=== PATIENT | female | born 1945 | race Caucasian/White ===

== ENCOUNTER 2018-07-12 23:43 | Emergency (ER) | payer MEDICARE ==
[~2018-07-12 23:43] MED LIST: Iopamidol 370 76% 100 ML VIAL ONE
[2018-07-13] MEDS ORDERED: Morphine 4 MG/ML VIAL ONE (00:06)
[2018-07-13] MEDS ORDERED: Ondansetron PF 4 MG/2 ML Vial ONE (00:06)
[2018-07-13 00:38] LABS: Band 1 % (5-11); Eosinophils 5 % (0-10); Hemoglobin 14.2 g/dL (12.0-16.0); Lymphocytes 24 % (21-51); MDiff Complete? YES; Mean Corpuscular HGB CONC 34.5 g/dL (32.0-36.0); Mean Corpuscular Hemoglobin 29.7 pg (27.0-31.0); Mean Corpuscular Volume 86.1 fL (78.0-98.0); Monocytes 11 % (0-10); Neutrophil 55 % (42-75); Platelet Count 206 thou/uL (130-400); RBC Distribution Width 11.6 % (11.5-14.5); Reactive Lymphocytes 4 % (0-10); White Blood Cell (WBC) Count 4.1 thou/uL (4.8-10.8)
[2018-07-13] MEDS ORDERED: Aspirin Chewable 81 MG TAB ONE (00:41)
[2018-07-13 00:42] LABS: ALT (SGPT) 19 U/L (8-55); AST (SGOT) 14 U/L (5-34); Albumin 4.2 g/dL (3.4-4.8); Alkaline Phosphatase 57 U/L (40-150); Anion Gap 13 mmol/L (10-20); BUN (Urea Nitrogen) 13 mg/dL (9.8-20.1); Bilirubin, Total 0.4 mg/dL (0.2-1.2); Calc. Creatinine Clearance 0 mL/min (70-130); Calcium 9.3 mg/dL (7.8-10.44); Carbon Dioxide 25 mmol/L (23-31); Chloride 104 mmol/L (98-107); Estimated GFR-MDRD 74; Globulin 2.5 g/dL (2.4-3.5); Glucose 135 mg/dL (83-110); Potassium 3.6 mmol/L (3.5-5.1); Protein, Total 6.7 g/dL (6.0-8.3); Sodium 138 mmol/L (136-145)
[2018-07-13] MEDS ORDERED: Ketorolac Tromethamine 30 MG/ML VIAL ONE (00:56)
[2018-07-13] MEDS ORDERED: HYDROcodone/Acetaminophen 5/325 mg Tablet ONE (02:12)
--- NOTE | 2018-07-13 07:35 | RAD ---
CHEST 1 VIEW: Date: 07/13/18 HISTORY: Chest pain. COMPARISON: None. FINDINGS: Lungs are clear. No pneumothorax or effusion. Cardiac silhouette and mediastinal contours within norm al limits. No acute osseous abnormality. IMPRESSION: No acute intrathoracic abnormality. POS: CELIAH
--- NOTE | 2018-07-13 08:08 | CT ---
PRELIMINARY REPORT/[facility]/EMERGENTY AFTER-HOURS PROCEDURE CT Angiography Chest With Contrast EXAM DATE/TIME: 07/13/2018 1:08 AM CLINICAL HISTORY: 73 years old, female; Pain and abnormal findings; Abnormal diagnostic tests; Elevated d-dimer; Chest wall pain and pleuordynia; Patient HX: Left lower chest pain, elevated ddimer. No recent Surgeries TECHNIQUE: Axial computed tomographic angiography images of the chest with intravenous contrast using CT angiogr aphy protocol. All CT scans at this facility use at least one of these dose optimization techniques: automated expos ure control; mA and/or kV adjustment per patient size (includes targeted exams where dose is matched to clinical indication); or iterative reconstruction. Coronal reformatted images were created and reviewed. MIP reconstructed images were created and reviewed. CONTRAST: Contrast Material: 80 ml of [id number]; Contrast Route: iv COMPARISON: No relevant prior studies available. FINDINGS: Pulmonary arteries: No pulmonary emboli. Aorta: Normal. No aortic aneurysm. No aortic dissection. Lungs: Linear atelectasis and/or scarring within the right middle lobe and lingula. Pleural space: Normal. No pneumothorax. No pleural effusion. Heart: Minimal atherosclerotic disease of the proximal left anterior descending coronary artery. Adrenals: 14 mm benign left adrenal adenoma. Lymph nodes: Unremarkable. No enlarged lymph nodes. Bones/joints: Multilevel thoracic spine degenerative changes. Soft tissues: Unremarkable. IMPRESSION: No pulmonary emboli. Thank you for allowing us to participate in the care of your patient. Dictated and Authenticated by: Saeid Lyons MD 07/13/2018 2:04 AM Central Time ([place] & [place]) FINAL REPORT CT ANGIOGRAM CHEST WITH CONTRAST: Date: 07/13/18 HISTORY: Chest pain. Elevated D-Dimer. COMPARISON: None. FINDINGS/IMPRESSION: CT angiogram chest performed after the intravenous administration of contrast. 3D rendering provided. Findings and impression are concordant with the preliminary report by Neal. Nodule in the lateral mercedes b of left adrenal gland measures less than 10 Hounsfield units, suggestive of an adenoma. POS: BUTCH
== END 2018-07-13 02:23 | disposition home or self-care (01) ==
LOC: SCSER 23:43
DX: R07.89 Other chest pain (principal)
CPT/HCPCS: 71045; 71275; 80053; 84484; 85025; 85379; 93005; 96374; 96375; J1885; J2270; J2405; Q9967

== ENCOUNTER 2018-10-19 09:13 | Emergency (ER) | payer MEDICARE ==
[2018-10-19] MEDS ORDERED: Adacel (T-DAP) 0.5 ML SYRINGE ONE (09:33)
[2018-10-19] MEDS ORDERED: Lidocaine 4% Cream 5 GM TUBE w/ Tegaderm ONE (09:33)
[2018-10-19] MEDS ORDERED: Acetaminophen 500 MG TAB ONE (09:33)
[2018-10-19] MEDS ORDERED: Lidocaine 1% PF 5 ML VIAL ONE (09:49)
--- NOTE | 2018-10-19 10:03 | CT ---
CT BRAIN NONCONTRAST: DATE: 10/19/2018 HISTORY: 73-year-old female status post head trauma from fall FINDINGS: There is no evidence of acute intra-axial or extra-axial hemorrhage. There is no midline shift or any other mass effect. There is no extra-axial fluid collection. There is no evidence of obstructive hydrocephalus. Calvarium is intact. In the superficial soft tissues of the right supraorbital lower f rontal scalp, there is soft tissue swelling and small amount of soft tissue gas. There is a cavum septi pellucidi and cavum vergae. The visualized portions of paranasal sinuses and bilateral tympanom astoid cavities are grossly clear. IMPRESSION: 1. No acute intracranial findings. 2. Acute, traumatic right supraorbital superficial soft tissue contusion and laceration.
--- NOTE | 2018-10-19 10:17 | RAD ---
4 views right knee: 10/19/2018 COMPARISON: None HISTORY: Fall, trauma, pain FINDINGS: Moderate knee joint effusion noted. There is a fracture involving the inferior aspect of th e patella on the right involving the posterior cortex, best seen on the lateral examination. No significant displacement. No evidence for dislocation. IMPRESSION: Acute fracture of the inferior aspect right patella with associated knee joint effusion.
[2018-10-19] MEDS ORDERED: Ketorolac Tromethamine 30 MG/ML VIAL ONE (11:10)
== END 2018-10-19 12:21 | disposition home or self-care (01) ==
LOC: ERS 09:13
DX: S82.001A Unspecified fracture of right patella, initial encounter for closed fracture (principal); S01.81XA Laceration without foreign body of other part of head, initial encounter; W17.89XA Other fall from one level to another, initial encounter
CPT/HCPCS: 12013; 70450; 90471; 90715; 96372; J1885; J2001

== ENCOUNTER 2018-10-24 09:15 | Emergency (ER) | payer MEDICARE | END 2018-10-24 10:05 | disposition home or self-care (01) | LOC: ERS 09:15 | DX: S05.41XA Penetrating wound of orbit with or without foreign body, right eye, initial encounter (principal); J45.909 Unspecified asthma, uncomplicated; W19.XXXA Unspecified fall, initial encounter ==

== ENCOUNTER 2019-04-12 14:44 | Outpatient (CLI) | payer MEDICARE ==
--- NOTE | 2019-04-12 15:07 | BD ---
DEXA bone density examination HISTORY: 74-year-old postmenopausal female for screening COMPARISON: None FINDINGS: L1--bone mineral density 0.78 g/sq cm; T score -1.9 L2--bone mineral density 0.982 g/sq cm; T score -0.4 L3--bone mineral density 0.857 g/sq cm; T score -2.1 L4--bone mineral density 0.926 g/sq cm; T score -1.2 Total L1-L4--bone mineral density 0.887 g/sq cm; T score -1.5 Left femoral neck--bone mineral density0.618 g/sq cm T score -2.1 Total proximal left femur--bone mineral density 0.812 g/sq cm ; T score -1.1 There is mild left convex curvature of the lumbar spine with degenerative changes in the lumbar spine . Degenerative changes in the lumbar spine may falsely elevate the bone mineral density and under estimate the risk for fracture. IMPRESSION: 1. Moderate osteopenia left femoral neck. 2. Mild osteopenia left femoral neck. 3. The 10 year major osteoporotic risk fracture is 28% with 10 year hip fracture risk of 18%.
== END 2019-04-12 14:45 | disposition home or self-care (01) ==
LOC: BICMAMMO 14:44
PROVIDERS: ATTEND Internal Medicine
DX: Z13.820 Encounter for screening for osteoporosis (principal); Z78.0 Asymptomatic menopausal state; M85.89 Other specified disorders of bone density and structure, multiple sites
CPT/HCPCS: 77080

== ENCOUNTER 2020-03-16 07:01 | Outpatient (CLI) | payer MEDICARE ==
--- NOTE | 2020-03-16 22:04 | HP ---
SCHEDULED DATE OF SURGERY: 03/21/2020. HISTORY OF PRESENT ILLNESS: Ms. Pal is a 74-year-old white female, G2, P2, who has been noticing progressively worsening vaginal prolapse symptoms. She describes an uncomfortable bulge that she feels is worsened by prolonged standing or sitting. She is also having pain with intercourse due to the vaginal bulge symptoms. She does have some mixed incontinence issues, which is mostly urge related and has been followed by urology service with Dr. Katarina Voss. She has had a history of chronic constipation in the past, but this has now been under control with diet and fiber supplements. PAST MEDICAL HISTORY: Significant for hyperlipidemia and restless legs syndrome. She also has asthma. CURRENT MEDICATIONS: 1. Atorvastatin 20 mg tablet daily. 2. Breo Ellipta 100 mcg, 25 mcg dose inhalation 1 daily. 3. Pramipexole 0.5 mg tablet 1 twice daily for restless legs. OB HISTORY: She has had 2 spontaneous vaginal deliveries. Denies any other prior surgeries. SOCIAL HISTORY: She is a nonsmoker. No excessive alcohol use. She is . PHYSICAL EXAMINATION: VITAL SIGNS: 5 feet 6 inches, weight 129 with a BMI of 20.8, blood pressure is 138/74, pulse 61 regular, respiratory rate 18 and O2 saturation on room air 98%. HEENT: Within normal limits. CHEST: Clear to auscultation. HEART: Regular rate and rhythm. S1, S2 heart sounds. No murmurs, rubs, or gallops. ABDOMEN: Soft, nontender, nondistended with no palpable masses. PELVIS: She has a normal external female genitalia. The vagina is significant for a grade 3 cystocele and a grade 2 rectocele. Cervix has no lesions. She has a grade 2 uterine prolapse with Valsalva noted. There were no adnexal masses on pelvic exam. EXTREMITIES: Showed full range of motion. NEUROLOGIC: She is grossly intact. ASSESSMENT AND PLAN: A 74-year-old white female, 2, para 2, with symptomatic pelvic organ prolapse including a grade 3 cystocele, grade 2 rectocele and grade 2 uterine prolapse. PLAN: Plan is to proceed with a robotic laparoscopic ALBERTO/BSO with anterior and posterior repair. Risks and benefits of procedure had been discussed in detail. She is set up for surgery on 03/21/2020. Job ID: [id number]
== END 2020-03-16 07:02 | disposition home or self-care (01) ==
LOC: LABBT 07:01
PROVIDERS: ATTEND Obstetrics & Gynecology
DX: Z01.812 Encounter for preprocedural laboratory examination (principal); N81.2 Incomplete uterovaginal prolapse
CPT/HCPCS: 85027; 86850; 86900; 86901; U0003; 87635

== ENCOUNTER 2020-03-21 07:50 | Day surgery (SDC) | payer MEDICARE ==
[2020-03-16 18:40] LABS: Hemoglobin 13.5 g/dL (12.0-16.0); Mean Corpuscular HGB CONC 33.4 G/DL (32.0-36.0); Mean Corpuscular Hemoglobin 28.8 PG (27.0-33.0); Mean Corpuscular Volume 86.3 fl (80.0-100.0); Mean Platelet Volume 10.1 fl (7.4-10.4); Platelet Count 267 10x3/uL (130-400); RBC Distribution Width 12.7 % (11.5-14.5); Red Blood Cell (RBC) Count 4.68 10x6/uL (3.90-5.20); White Blood Cell (WBC) Count 5.4 10x3/uL (4.5-11.0)
[2020-03-17 15:21] LABS: SARS-CoV-2 MS2 Positive; SARS-CoV-2 N Gene Negative; SARS-CoV-2 S Gene Negative; SARS-CoV-2 by NAA Not Detected (NotDetected); SARS-CoV-2 orf1ab Negative
[2020-03-20 11:28] VITALS: BMI 20.9
[2020-03-21] MEDS ORDERED: Gabapentin 300 MG CAP ONE (08:29)
[2020-03-21] MEDS ORDERED: Famotidine/PF 20 mg/2ml Vial ONE (08:29)
[2020-03-21] MEDS ORDERED: CeleCOXIB 100 MG CAP ONE (08:29)
[2020-03-21] MEDS ORDERED: PROPOFOL 200 MG/20 ML VIAL ONE (11:00)
[2020-03-21] MEDS ORDERED: Rocuronium Bromide 10 MG/ML (10ML VIAL) ONE (11:00)
[2020-03-21] MEDS ORDERED: Dexamethasone 20 MG/5 ML VIAL ONE (11:00)
[2020-03-21] MEDS ORDERED: Glycopyrrolate 0.2 MG/ML 5 ML SYRINGE ONE (11:00)
[2020-03-21] MEDS ORDERED: ePHEDrine 50 MG/ML VIAL ONE (11:00)
[2020-03-21] MEDS ORDERED: Lidocaine 1% PF 5 ML VIAL ONE (11:00)
[2020-03-21] MEDS ORDERED: Ondansetron PF 4 MG/2 ML Vial ONE (11:00)
[2020-03-21] MEDS ORDERED: Midazolam HCl 2 mg/2 ml Vial ONE (11:12)
[2020-03-21] MEDS ORDERED: Fentanyl 100 MCG/2 ML VIAL ONE ×2 (11:12→15:48)
[2020-03-21] MEDS ORDERED: Lidocaine 2% Jelly 5 ML TUBE ONE (11:12)
[2020-03-21] MEDS ORDERED: Lidocaine 1% w/Epinephrine 1:100K 20 ML VIAL ONE (11:17)
[2020-03-21] MEDS ORDERED: Bupivacaine PF 0.5% 30 ML VIAL ONE (11:17)
[2020-03-21] MEDS ORDERED: HYDROcodone/Acetaminophen 5/325 mg Tablet PO PRN ×2 (13:46)
[2020-03-21] MEDS ORDERED: Ondansetron PF 4 MG/2 ML Vial IVP PRN (13:46)
[2020-03-21] MEDS ORDERED: Bisacodyl 10 MG SUPP PR PRN (13:46)
[2020-03-21] MEDS ORDERED: traMADol HCl 50 MG TAB PO PRN (13:46)
[2020-03-21] MEDS ORDERED: Simethicone Chewable 80 MG TAB PO PRN (13:46)
[2020-03-21] MEDS ORDERED: Morphine 2 MG/ML VIAL SLOW IVP PRN (13:46)
[2020-03-21] MEDS ORDERED: diphenhydrAMINE 25 MG CAP PO PRN (13:46)
[2020-03-21] MEDS: Mometasone 100 MCG/Formoterol 5 MCG 120 PUFF INHALER INH SCH (20:22)
[2020-03-21] MEDS ORDERED: Atorvastatin Calcium 20 MG TAB PO SCH (21:00)
[2020-03-21] MEDS: Docusate 100 MG CAP PO SCH (21:55)
[2020-03-21] MEDS: Pramipexole Di-HCl 0.25 MG TAB PO SCH (21:56)
[2020-03-22 07:00] LABS: Hemoglobin 11.8 g/dL (12.0-16.0); Mean Corpuscular HGB CONC 33.8 g/dL (32.0-36.0); Mean Corpuscular Hemoglobin 30.8 pg (27.0-31.0); Mean Corpuscular Volume 90.9 fL (78.0-98.0); Mean Platelet Volume 7.7 fL (7.4-10.4); Platelet Count 189 thou/uL (130-400); RBC Distribution Width 11.5 % (11.5-14.5); Red Blood Cell (RBC) Count 3.84 mill/uL (4.20-5.40)
--- NOTE | 2020-03-22 07:42 | PDOC.EVN ---
Event Note - Event Note Event Note: Good pain control. Tolerating diet. O:AFVSS. U/o 1400 ml. HCT 35%] Abdomen soft. Trochar sites intact. extremities non tender. A/P Post op day 1 from robotic tlh/bso A&P repair. Begin voiding trial.
[2020-03-22] MEDS: Mometasone 100 MCG/Formoterol 5 MCG 120 PUFF INHALER INH SCH (08:50)
[2020-03-22] MEDS: Docusate 100 MG CAP PO SCH (08:58)
[2020-03-22] MEDS: Pramipexole Di-HCl 0.25 MG TAB PO SCH (11:47)
[2020-03-22 11:51] VITALS: BP 130/63; TEMP 98.1
--- NOTE | 2020-03-22 14:45 | DIS ---
DATE OF ADMISSION: 03/21/2020 DATE OF DISCHARGE: 03/22/2020 DATE OF SURGERY: 03/21/2020. DIAGNOSES: Symptomatic cystocele and rectocele with uterine prolapse. PROCEDURES PERFORMED: Robotic TLH/BSO, anterior and posterior repair. SUMMARY OF HOSPITAL COURSE: Ms. Pal is a 75-year-old white female with symptomatic grade 3 cystocele, grade 2 rectocele, and grade 2 uterine prolapse, who underwent robotic total laparoscopic hysterectomy and BSO with anterior and posterior repair. Postoperatively, she has done well. Vital signs remain stable. She is tolerating diet and ambulating without difficulty. Postoperative hematocrit was 35%. She had a voiding trial on postop day #1 and she was unable to void with a postvoid residual 690 mL. Due to the large volume, we reinserted the catheter and discharge the patient home with plan for removing the catheter for postvoid residual checks in my office on 03/24. The patient has prescription for tramadol 50 mg q.6 hours p.r.n. pain, [id number]-ciz-yphzlcf ibuprofen as directed. She will be seen in my office in the morning of 03/24 to reassess Smith catheter removal and voiding reassessment. Job ID: [id number]
--- NOTE | 2020-03-22 15:36 | OP ---
DATE OF PROCEDURE: 03/21/2020 PREOPERATIVE DIAGNOSES: A 74-year-old white female with symptomatic grade 3 cystocele, grade 2 uterine prolapse, grade 2 rectocele. POSTOPERATIVE DIAGNOSES: A 74-year-old white female with symptomatic grade 3 cystocele, grade 2 uterine prolapse, grade 2 rectocele. In addition, evidence of patulous cecum. PROCEDURE PERFORMED: Robotic TLH-BSO with anterior and posterior repair. [employer] ENGINEER SURGEON: AHMET Wang. ANESTHESIA: General endotracheal. ESTIMATED BLOOD LOSS: 25 mL. COMPLICATIONS: None. COUNTS: Correct x2. ANTIBIOTICS: 2 g Ancef on-call to OR. FINDINGS: 1. Normal postmenopausal appearing uterus, tubes, and ovaries. 2. Clear urine present in Smith catheter postprocedure and bladder was watertight to distention post hysterectomy with bilateral ureteral peristalsis visualized post hysterectomy. 3. The patient had somewhat dilated appearing cecum and General Surgery intraop consult for viewing with Dr. Mal Hernandez again was entertained. There was felt to be a benign patulous cecum with some adhesions to the right pelvic sidewall and no other indications for surgical dissection was warranted. DISPOSITION: To recovery room, stable. DESCRIPTION OF PROCEDURE: The patient previously received informed consent in regard to surgery. She was taken back to the operating room, where she received a general endotracheal anesthetic agent without complications. She was placed in dorsal lithotomy position with use of Randal stirrups , prepped and draped in the usual sterile fashion. Smith catheter was placed at this time. Side-arm speculum was placed in the vagina. Anterior lip of the cervix was grasped with a single-tooth tenaculum. The uterus sounded to 7 cm. A size 6 cm VIJAY uterine manipulator with 3.5 cm cervical cup was placed. Tenaculum and speculum removed. Attention was then turned to the abdomen, where perspective trocar sites were infiltrated with 0.5% Marcaine with epinephrine. A 12 mm supraumbilical incision was made. Veress needle was entered into the abdomen. Peritoneal cavity pressure was less than 5 and the abdomen was insufflated to patient pressure of 15 approximately 4.5 L of carbon dioxide gas. The Veress needle was then removed and then a size 12 mm trocar was placed in the supraumbilical incision. Laparoscope was then introduced through the trocar sleeve confirming proper entry. Additional bilateral lower quadrant 8 mm trocars along with the 11 mm right upper quadrant trocar was placed under laparoscopic guidance. The robot was then docked. Due to the findings of the cecum, I had the OR staff summoned Dr. Hernandez from General Surgery to have him take a look at the cecum that appeared very patulous and distended. He evaluated this and felt this was a normal finding with some adhesions to the right pelvic sidewall that accentuated the cecum. No adhesiolysis was warranted. Once the intraoperative viewing had been confirmed, then we proceeded to carry out the hysterectomy. The uterus lifted from the pelvis. The left infundibulopelvic ligament was grasped and was identified and the left tube was grasped by my surgical assistant. At the operative console, I then coagulated the left IP ligament with bipolar fenestrated cautery, transected with monopolar scissors. Serial coagulation and transection of the broad ligament hugging close to uterus was carried down until the left round ligament was reached. It was coagulated and transected. The anterior leaf of the broad ligament was entered anteriorly and posteriorly. The vesicouterine peritoneum was incised in a layering technique dissecting the bladder safely past the cervical vaginal margin. I also skeletonized the uterine vessels in the internal cervical os region. These were coagulated in that region with bipolar fenestrated cautery. I then proceeded to carry out this at the right IP ligament, which again was coagulated and transected and then serial coagulation of broad ligament to the right round ligament was carried out, coagulating and transecting this until the anterior leaf of the broad ligament again was entered dissecting the vesicouterine peritoneum in a layering technique, dropping the bladder safely past the cervical vaginal margin and then uterine vessels again were skeletonized and coagulated in internal cervical. Prior to the anterior colpotomy, we distended the bladder to make sure the bladder was safely past the anticipated colpotomy site and it was at least a centimeter inferior to this tamika. The anterior colpotomy was then started from 12 to 3 and 12 to 9 o'clock position completed from 6 to 9 and 6 to 3 o'clock. Prior to this, we placed a 2-0 Vicryl suture in each uterosacral ligament just near the cervix prior to the posterior colpotomy. Once the uterus had been released, it was brought into the vaginal vault. The vaginal cuff was coagulated any areas of oozing with bipolar fenestrated cautery and all the pedicle sites were noted to be hemostatic. We then brought the two tagged uterosacral sutures down into the vaginal vault and these were tagged individually by my surgical assistant at the vaginal site. We then undocked the robot and trocar sleeves were removed. Trocar sites were closed with the deep stitch of 0 Vicryl. Ztrnve-nl-nelwq stitch fashion in the umbilicus area was used to fascia and the remainder of the trocar sites were closed with 4-0 subcuticular Monocryl and Dermabond. We then continued the surgery at the vaginal portion. The patient's legs were brought further back for operative vaginal surgery. A weighted speculum was placed in the vagina. The two tagged uterosacral ligaments were brought down to help bring the vaginal cuff into view. A curved Laura was placed anteriorly. A kpjwdr-cx-exuqq stitch of 0 Vicryl was placed in the posterior vaginal cuff and tagged for retraction. We then grabbed two edges of the 4 and 8 o'clock position. The anterior vaginal mucosa was infiltrated with 1% lidocaine with epinephrine. A midline incision was made to about 1.5 cm from the urethral meatus. Each side of the vaginal mucosa was grasped with Allis clamps to aid with countertraction and I dissected the cystocele defect both sharply and bluntly reducing in its entirety. The endopelvic fascia of the cystocele defect was then replicated in the midline, starting close to the urethral meatus and working outward reducing the cystocele in its entirety with interrupted 2-0 Vicryl mekxsb-eu-ccosd stitches. We then closed the remainder of the anterior vaginal mucosa with interrupted qtnyyo-dt-zjsrn stitches, incorporating some of the endopelvic fascia to rid the space. We then closed the vaginal cuff in a horizontal direction. Interrupted qcurvi-sw-anddv stitches of 2-0 Vicryl again were placed in the vaginal cuff incorporating this and also tying in the previously placed uterosacral ligaments. Once the cuff was closed, we then proceeded to carry out the posterior repair. The weighted speculum had been removed and the 4 and 8 o'clock position of the posterior vaginal introitus was grasped with two Allis clamps. The posterior vaginal mucosa was infiltrated with 1% lidocaine with epinephrine. Metzenbaum scissors were utilized to incise the posterior vaginal mucosa with the introitus up to the cuff line. The edges of the vaginal mucosa were grasped with Allis clamps to aid in counter traction and dissection of the rectocele. The rectocele was dissected both sharply and bluntly and once it was reduced to be tagged the upper vaginal margin of the posterior mucosa with a vponyj-pd-lvgac stitch to aid for retraction and then I closed the endopelvic fascial replicated that in the midline starting at most cephalad and working most back towards the opening of the introitus. These were interrupted fvgptb-ty-qebes stitches of 2-0 Vicryl. We then closed off the posterior vaginal mucosa with interrupted ozcdfc-ux-elaso stitches of 2-0 Vicryl incorporating some of the endopelvic fascia to rid the space. Hemostasis was confirmed. I then packed the vaginal vault with a moistened Kerlix and trimmed the excess of the Kerlix. Clear urine was draining from the Smith catheter. The patient was awakened from anesthesia and transferred to recovery room in stable. Job ID: [id number]
== END 2020-03-22 14:30 | disposition home or self-care (01) ==
LOC: SDC 07:50 → 3SE 13:46 → SDC 03-22 14:30
PROVIDERS: ATTEND Obstetrics & Gynecology
PROC: 0UT94ZZ Resection of Uterus, Percutaneous Endoscopic Approach (ICD-10-PCS; principal; 2020-03-21)
PROC: 0UT24ZZ Resection of Bilateral Ovaries, Percutaneous Endoscopic Approach (ICD-10-PCS; 2020-03-21)
PROC: 0UT74ZZ Resection of Bilateral Fallopian Tubes, Percutaneous Endoscopic Approach (ICD-10-PCS; 2020-03-21)
PROC: 0JQC0ZZ Repair Pelvic Region Subcutaneous Tissue and Fascia, Open Approach (ICD-10-PCS; 2020-03-21)
PROC: 0JQC0ZZ Repair Pelvic Region Subcutaneous Tissue and Fascia, Open Approach (ICD-10-PCS; 2020-03-21)
DX: N81.2 Incomplete uterovaginal prolapse (principal); D25.9 Leiomyoma of uterus, unspecified; N73.6 Female pelvic peritoneal adhesions (postinfective); N83.292 Other ovarian cyst, left side; N83.291 Other ovarian cyst, right side; N39.46 Mixed incontinence; E78.5 Hyperlipidemia, unspecified; G25.81 Restless legs syndrome; J45.909 Unspecified asthma, uncomplicated; Z79.899 Other long term (current) drug therapy; Z20.828 Contact with and (suspected) exposure to other viral communicable diseases
CPT/HCPCS: 57260; 58571; 85027 ×2; 86850; 86900; 86901; 88307; 94640 ×2; 94664; U0003; 36415; 87635; J0690; J1100; J2250; J2405; J2704; J3010; J3490; S0020; S0028